=== PATIENT | female | born 1985 | race Caucasian/White ===

== ENCOUNTER 2016-11-05 07:15 | Emergency (ER) | payer BC ==
[2016-11-05 07:34] VITALS: BP 113/68
--- NOTE | 2016-11-05 08:44 | RAD ---
INDICATION: Dorsal foot and medial ankle pain after injury the previous day COMPARISON: None. TECHNIQUE: 3 views of the left ankle and 3 views of the left foot were obtained. FINDINGS: The well corticated bones exhibit normal alignment. Joint spaces appear maintained. No fracture is seen. IMPRESSION: NO RADIOGRAPHICALLY APPARENT FRACTURE OR DISLOCATION INVOLVING THE LEFT FOOT OR ANKLE. If the patient's symptoms persist, follow-up imaging is recommended.
--- NOTE | 2016-11-05 10:27 | UC ---
I, Oh,Sofranchesca, scribed for Almas Blackwood MD on 11/05/16 at 0816 . Lower Extremity/Ankle HPI - HPI Summary HPI Summary: This 31 y/o female presents to ED for left ankle pain after rolling her ankle inward while jogging on stairs yesterday morning. Negative knee pain. Positive swelling. Pt states that she is able to ambulate although "with limp". IBP, ice , and rest make pain better. Ambulation makes it worse. Pt denies any PMHx or prior injury to LLE ankle. IBP does alleviate the pain. - History of Current Complaint Chief Complaint: UCLowerExtremity Stated Complaint: ANKLE INJURY Time Seen by Provider: 11/05/16 07:42 Hx Obtained From: Patient, Medical Records Hx Last Menstrual Period: current Onset/Duration: Sudden Onset, Still Present Pain Intensity: 4 Pain Scale Used: 0-10 Numeric Aggravating Factor(s): Standing, Ambulation Alleviating Factor(s): Rest, Ice Able to Bear Weight: Yes - Allergies/Home Medications Allergies/Adverse Reactions: Allergies Allergy/AdvReac Type Severity Reaction Status Date / Time Sulfa Antibiotics Allergy Rash Verified 11/05/16 07:29 Home Medications: Home Medications Fluoxetine HCl 40 mg PO DAILY 11/05/16 [History Confirmed 11/05/16] Ibuprofen [Ibuprofen 200 MG] 200 mg PO Q6H PRN 11/05/16 [History Confirmed 11/05] PMH/Surg Hx/FS Hx/Imm Hx - Additional Past Medical History Additional PMH: Deviated septum s/p surgery - Surgical History Surgical History: Yes Surgery Procedure, Year, and Place: deviated septum - Family History Known Family History: Positive: Hypertension - Positive to father - Social History Alcohol Use: Occasionally Substance Use Type: None Smoking Status (MU): Never Smoked Tobacco Review of Systems Constitutional: Negative Skin: Negative Eyes: Negative ENT: Negative Respiratory: Negative Cardiovascular: Negative Gastrointestinal: Negative Genitourinary: Negative Motor: Negative Neurovascular: Negative Musculoskeletal: Other: - left ankle pain Neurological: Negative Psychological: Negative All Other Systems Reviewed And Are Negative: Yes Physical Exam Triage Information Reviewed: Yes Vital Signs: Initial Vital Signs Temp 99.4 F 11/05/16 07:30 Pulse 72 11/05/16 07:30 Resp 16 11/05/16 07:30 BP 113/68 11/05/16 07:30 Pulse Ox 99 11/05/16 07:30 Vital Signs Reviewed: Yes - Additional Comments The patient is well-nourished in no acute distress and in no acute pain. The skin is warm and dry and skin color reflects adequate perfusion. Neck is supple with full range of motion and non-tender. There are no carotid bruits. There is no neck vein distension. Respiratory: Chest is non-tender. Lungs are clear to auscultation and breath sounds are symmetrical and equal. Cardiovascular: Hear is regular rate and rhythm. There is no murmur or rub auscultated. There is no peripheral edema and pulses are symmetrical and equal. Abdomen: The abdomen is soft and non-tender. There are normal bowel sounds heard in all four quadrants and there is no organomegaly palpated. Musculoskeletal: There is no back pain noted. Extremities are non-tender with full range of motion. There is good capillary refill. There is no peripheral edema or calf tenderness elicited. Neurological: Patient is alert and oriented to person, place and time. The patient has symmetrical motor strength in all four extremities. Cranial nerves are grossly intact. Deep tendon reflexes are symmetrical and equal in all four extremities. Psychiatric: The patient has an appropriate affect and does not exhibit any anxiety or depression. no pain knee, or distal tibia/fibula Pain medial/lateral malleouslus. Pain mrore to foot. No pain at base of metatarsal. deltoid ligament on medial malleolus noted with swelling and acute ecchymosis. Achilles tendon intact. Procedures - Splinting Pre-Made Type: aircast Splint: Left ankle Pre-Proc Neuro Vasc Exam: normal Post-Proc Neuro Vasc Exam: normal Diagnostics - Radiology Left knee Xray Interpretation: No Acute Changes - NO RADIOGRAPHICALLY APPARENT FRACTURE OR DISLOCATION INVOLVING THE LEFT FOOT OR ANKLE. If the patient's symptoms persist, follow-up imaging is recommended. Radiology Interpretation Completed By: Radiologist Left foot Xray Interpretation: No Acute Changes - NO RADIOGRAPHICALLY APPARENT FRACTURE OR DISLOCATION INVOLVING THE LEFT FOOT OR ANKLE. If the patient's symptoms persist, follow-up imaging is recommended. Radiology Interpretation Completed By: Radiologist Re-Evaluation - Re-Evaluation First Eval Re-Evaluation Time: 08:52 Lower Extremity Course/Dx - Course Course Of Treatment: Home med list reviewed and confirmed. Vital signs reviewed and noted with normotensive BP. This 31 y/o female presents to ED for LLE ankle injury and pain since 2 days ago. X-ray imaging results indicate negative fx or dislocation of LLE ankle. Pt will be discharged with outpatient f/u plan. - Differential Dx/Diagnosis Differential Diagnosis/HQI/PQRI: Fracture (Closed), Sprain, Tendonitis Provider Diagnoses: 1) left ankle sprain. Discharge - Discharge Plan Condition: Stable Disposition: HOME Patient Education Materials: Ankle Sprain (ED) Referrals: Shashank Morelos [Medical Doctor] - 2 Days Additional Instructions: Be sure to apply ice and keep ankle elevated. The documentation as recorded by the Christ yañez Soohyun accurately reflects the service I personally performed and the decisions made by me, Almas Blackwood MD.
== END 2016-11-05 09:19 | disposition home or self-care (01) ==
LOC: UCEAST 07:15
DX: S93.402A Sprain of unspecified ligament of left ankle, initial encounter (principal); X50.0XXA Overexertion from strenuous movement or load, initial encounter; Y93.02 Activity, running; Y92.9 Unspecified place or not applicable; Y99.9 Unspecified external cause status
CPT/HCPCS: 99213; G0463

== ENCOUNTER 2017-09-22 13:20 | Emergency (ER) | payer BC ==
[2017-09-22] MEDS ORDERED: NS 0.9% 1000 ML* 3,000 ML IV ONE (13:59)
[2017-09-22] MEDS ORDERED: Ondansetron ODT TAB* 4 MG PO ONE (14:00)
[2017-09-22 14:22] LABS: ABS Basophils 0 10^3/ul (0-0.2); ABS Eosinophils 0 10^3/ul (0-0.6); ABS Lymphocytes 0.6 10^3/ul (1.0-4.8); ABS Monocytes 0.4 10^3/ul (0-0.8); ABS Neutrophils 4.6 10^3/ul (1.5-7.7); ABS Nucleated RBC 0 10^3/ul; Eosinophil % 0.6 % (0-6); Hematocrit 42 % (35-47); Hemoglobin 14.5 g/dl (12.0-16.0); Lymphocyte % 11.3 % (25-47); Mean Corpuscular HGB Conc 35 g/dl (31-36); Mean Corpuscular Hemoglobin 31 pg (27-31); Mean Corpuscular Volume 89 fL (80-97); Mean Platelet Volume 7.3 um3 (7.4-10.4); Nucleated Red Blood Cells % 0; Platelet Count 191 10^3/ul (150-450); Red Blood Count 4.69 10^6/ul (4.0-5.4); Red Cell Distribution Width 12 % (10.5-15); White Blood Count 5.7 10^3/ul (3.5-10.8)
[2017-09-22 14:32] LABS: INR 1.01 (0.77-1.02)
[2017-09-22 14:41] LABS: EGFR Non-African American 83.7 (>60)
[2017-09-22] MEDS ORDERED: Ketorolac INJ* 30 MG/ML 1 ML VIAL IV ONE (16:00)
[2017-09-22] MEDS ORDERED: Ciprofloxacin TAB* 500 MG PO ONE ×2 (18:02→18:05)
[2017-09-22] MEDS ORDERED: metroNIDAZOLE TAB* 250 MG PO ONE ×2 (18:02→18:04)
[2017-09-22] MEDS ORDERED: O ndansetron ODT 4MG 2TAB PRPK 4 MG PAK PO ONE (18:03)
--- NOTE | 2017-09-22 18:09 | ED ---
Pal Pena Tiffany, scribed for Jim Keller MD on 09/22/17 at 1401 . Abdominal Pain/Female - HPI Summary HPI Summary: The patient is a 32 y/o F presenting to [facility] complains of abdominal pain since five nights ago. The patient rates the pain6 6/10 in severity. Symptoms aggravated by food. Symptoms alleviated by nothing. Reports diarrhea, nausea, decreased appetite, weakness, low back pain, chills, diaphoresis. Denies vomiting, blood in stools, fever, dysuria. Hx of IBS. No abdominal surgeries. - History of Current Complaint Chief Complaint: EDNauseaVomitDiarrh Stated Complaint: DIARRHEA Hx Obtained From: Patient Hx Last Menstrual Period: current Onset/Duration: Lasting Days - 5 nights ago, Still Present Timing: Constant Severity Currently: Moderate Pain Intensity: 6 Pain Scale Used: 0-10 Numeric Aggravating Factor(s): Food Alleviating Factor(s): Nothing Associated Signs and Symptoms: Positive: Negative - vomiting, blood in stools, fever, dysuria, Other: - diarrhea, nausea, decreased appetite, weakness, low back pain, chills, diaphoresis Allergies/Adverse Reactions: Allergies Allergy/AdvReac Type Severity Reaction Status Date / Time Sulfa (Sulfonamide Allergy Rash Verified 09/22/17 13:39 Antibiotics) Home Medications: Home Medications FLUoxetine CAP* [PROzac CAP*] 20 mg PO DAILY 09/22/17 [History Confirmed ] Levonorgestrel-Ethin Estradiol [Lessina-28] 1 tab PO DAILY 09/22/17 [History Confirmed 09/22/17] PMH/Surg Hx/FS Hx/Imm Hx Previously Healthy: No Endocrine/Hematology History: Denies: Hx Diabetes Cardiovascular History: Denies: Hx Hypertension, Hx Pacemaker/ICD GI History: Reports: Hx Irritable Bowel History: Denies: Hx Renal Disease Sensory History: Denies: Hx Hearing Aid Psychiatric History: Denies: Hx Panic Disorder - Surgical History Surgery Procedure, Year, and Place: deviated septum Infectious Disease History: No Infectious Disease History: Denies: Traveled Outside the [place] in Last 30 Days - Family History Known Family History: Positive: Hypertension - Positive to father - Social History Alcohol Use: Occasionally Hx Substance Use: No Substance Use Type: Reports: None Hx Tobacco Use: No Smoking Status (MU): Never Smoked Tobacco Review of Systems Positive: Chills, Skin Diaphoresis. Negative: Fever Gastrointestinal: Negative - Blood in stools Positive: Abdominal Pain, Diarrhea, Nausea, Other - Decreased appetite. Negative: Vomiting Negative: dysuria Positive: Other - Low back pain Positive: Weakness All Other Systems Reviewed And Are Negative: Yes Physical Exam - Summary Physical Exam Summary: General: Mildly ill-appearing, no pain distress Skin: warm, color reflects adequate perfusion, dry Head: normal Eyes: EOMI, DANIE ENT: Oral mucosa dry Neck: supple, nontender Respiratory: CTA, breath sounds present Cardiovascular: RRR Abdomen: mild diffuse tenderness Bowel: hypoactive bowel sounds Musculoskeletal: normal, strength/ROM intact Neurological: normal, sensory/motor intact, A&O x3 Psychological: affect/mood appropriate Triage Information Reviewed: Yes Vital Signs On Initial Exam: Initial Vitals Temp Pulse Resp BP Pulse Ox 99.2 F 84 19 131/81 100 09/22/17 13:24 09/22/17 13:24 09/22/17 13:24 09/22/17 13:24 09/22/17 13:24 Vital Signs Reviewed: Yes Diagnostics - Vital Signs Vital Signs Temp Pulse Resp BP Pulse Ox 09/22/17 13:38 73 117/66 100 09/22/17 13:36 74 100 09/22/17 13:24 99.2 F 84 19 131/81 100 - Laboratory Lab Results: Lab Results 09/22/17 09/22/17 09/22/17 Range/Units 14:14 14:14 14:14 WBC 5.7 (3.5-10.8) 10^3/ul RBC 4.69 (4.0-5.4) 10^6/ul Hgb 14.5 (12.0-16.0) g/dl Hct 42 (35-47) % MCV 89 (80-97) fL MCH 31 (27-31) pg MCHC 35 (31-36) g/dl RDW 12 (10.5-15) % Plt Count 191 (150-450) 10^3/ul MPV 7.3 L (7.4-10.4) um3 Neut % (Auto) 80.9 (38-83) % Lymph % (Auto) 11.3 L (25-47) % [place] % (Auto) 6.9 (0-7) % Eos % (Auto) 0.6 (0-6) % Baso % (Auto) 0.3 (0-2) % Absolute Neuts (auto) 4.6 (1.5-7.7) 10^3/ul Absolute Lymphs (auto) 0.6 L (1.0-4.8) 10^3/ul Absolute Monos (auto) 0.4 (0-0.8) 10^3/ul Absolute Eos (auto) 0 (0-0.6) 10^3/ul Absolute Basos (auto) 0 (0-0.2) 10^3/ul Absolute Nucleated RBC 0 10^3/ul Nucleated RBC % 0 INR (Anticoag Therapy) 1.01 (0.77-1.02) APTT 30.4 (26.0-36.3) seconds Sodium 133 L (139-145) mmol/L Potassium 3.3 L (3.5-5.0) mmol/L Chloride 103 (101-111) mmol/L Carbon Dioxide 25 (22-32) mmol/L Anion Gap 5 (2-11) mmol/L BUN 8 (6-24) mg/dL Creatinine 0.80 (0.51-0.95) mg/dL Est GFR ( Amer) 107.6 (>60) Est GFR (Non-Af Amer) 83.7 (>60) BUN/Creatinine Ratio 10.0 (8-20) Glucose 103 H (70-100) mg/dL Lactic Acid (0.5-2.0) mmol/L Calcium 8.6 (8.6-10.3) mg/dL Total Bilirubin 0.50 (0.2-1.0) mg/dL AST 17 (13-39) U/L ALT 11 (7-52) U/L Alkaline Phosphatase 42 (34-104) U/L C-Reactive Protein 17.08 H (< 5.00) mg/L Total Protein 6.8 (6.4-8.9) g/dL Albumin 3.9 (3.2-5.2) g/dL Globulin 2.9 (2-4) g/dL Albumin/Globulin Ratio 1.3 (1-3) Lipase 25 (11.0-82.0) U/L Beta HCG, Quant < 0.60 mIU/mL 09/22/17 Range/Units 14:14 WBC (3.5-10.8) 10^3/ul RBC (4.0-5.4) 10^6/ul Hgb (12.0-16.0) g/dl Hct (35-47) % MCV (80-97) fL MCH (27-31) pg MCHC (31-36) g/dl RDW (10.5-15) % Plt Count (150-450) 10^3/ul MPV (7.4-10.4) um3 Neut % (Auto) (38-83) % Lymph % (Auto) (25-47) % [place] % (Auto) (0-7) % Eos % (Auto) (0-6) % Baso % (Auto) (0-2) % Absolute Neuts (auto) (1.5-7.7) 10^3/ul Absolute Lymphs (auto) (1.0-4.8) 10^3/ul Absolute Monos (auto) (0-0.8) 10^3/ul Absolute Eos (auto) (0-0.6) 10^3/ul Absolute Basos (auto) (0-0.2) 10^3/ul Absolute Nucleated RBC 10^3/ul Nucleated RBC % INR (Anticoag Therapy) (0.77-1.02) APTT (26.0-36.3) seconds Sodium (139-145) mmol/L Potassium (3.5-5.0) mmol/L Chloride (101-111) mmol/L Carbon Dioxide (22-32) mmol/L Anion Gap (2-11) mmol/L BUN (6-24) mg/dL Creatinine (0.51-0.95) mg/dL Est GFR ( Amer) (>60) Est GFR (Non-Af Amer) (>60) BUN/Creatinine Ratio (8-20) Glucose (70-100) mg/dL Lactic Acid 0.9 (0.5-2.0) mmol/L Calcium (8.6-10.3) mg/dL Total Bilirubin (0.2-1.0) mg/dL AST (13-39) U/L ALT (7-52) U/L Alkaline Phosphatase (34-104) U/L C-Reactive Protein (< 5.00) mg/L Total Protein (6.4-8.9) g/dL Albumin (3.2-5.2) g/dL Globulin (2-4) g/dL Albumin/Globulin Ratio (1-3) Lipase (11.0-82.0) U/L Beta HCG, Quant mIU/mL Result Diagrams: 09/22/17 14:14 09/22/17 14:14 Lab Statement: Any lab studies that have been ordered have been reviewed, and results considered in the medical decision making process. Re-Evaluation - Re-Evaluation First Eval Re-Evaluation Time: 17:33 Change: Improved Comment: Patient feels better. Is agreeable to discharge. Abdominal Pain Fem Course/Dx - Course Course Of Treatment: Medications reviewed. Allergies noted. DISCUSSED RESULTS WITH THE PATIENT AND FRIEND. DISCUSSED ADMISSION VERSES HOME TREATMENT. ALSO, DISCUSSED ABX TREATMENT. PATIENT WISHES TO GO HOME. RX CIPRO/FLAGYL, F/U PMD; RETURN IF WORSE. - Diagnoses Provider Diagnoses: Bloody diarrhea, Abdominal pain Discharge - Sign-Out/Discharge Documenting (check all that apply): Discharge/Admit/Transfer - Discharge Plan Condition: Stable Disposition: HOME Patient Education Materials: Acute Diarrhea (ED), Acute Abdominal Pain (ED) Referrals: Laurie Zamora NP [Primary Care Provider] - Additional Instructions: FOLLOW UP WITH YOUR DOCTOR. RETURN TO THE EMERGENCY DEPARTMENT FOR ANY WORSENING OF YOUR CONDITION; FEVER, YOU FEEL ILL, PAIN, YOU FEEL LIKE PASSING OUT OR QUESTIONS OR CONCERNS. - Billing Disposition and Condition Condition: STABLE Disposition: HOME The documentation as recorded by the Pal yañez Tiffany accurately reflects the service I personally performed and the decisions made by me, Jim Keller MD.
[2017-09-22 18:30] VITALS: BP 123/83
--- NOTE | 2017-09-23 10:48 | PN ---
Progress Note - Progress Note Date of Service: 09/22/17 Note: positive stool occult blood, positive fecal lactoferrin patient diagnosed and discharged with bloody diarrhea no antbiotic treatment will wait for remaining stool culture results. no further action required
--- NOTE | 2017-09-24 17:33 | ED ---
Progress - Progress Note Progress Note: Stool culture negative for cryptosporidium, Giardia, shiga toxins. No further tx at this time. Re-Evaluation - Re-Evaluation First Eval Re-Evaluation Time: 17:33 Change: Improved Comment: Patient feels better. Is agreeable to discharge. Course/Dx - Course Course Of Treatment: Medications reviewed. Allergies noted. DISCUSSED RESULTS WITH THE PATIENT AND FRIEND. DISCUSSED ADMISSION VERSES HOME TREATMENT. ALSO, DISCUSSED ABX TREATMENT. PATIENT WISHES TO GO HOME. RX CIPRO/FLAGYL, F/U PMD; RETURN IF WORSE. - Diagnoses Provider Diagnoses: Bloody diarrhea, Abdominal pain Discharge - Sign-Out/Discharge Documenting (check all that apply): Post-Discharge Follow Up - Discharge Plan Condition: Stable Disposition: HOME Patient Education Materials: Acute Diarrhea (ED), Acute Abdominal Pain (ED) Referrals: Laurie Zamora NP [Primary Care Provider] - Additional Instructions: FOLLOW UP WITH YOUR DOCTOR. RETURN TO THE EMERGENCY DEPARTMENT FOR ANY WORSENING OF YOUR CONDITION; FEVER, YOU FEEL ILL, PAIN, YOU FEEL LIKE PASSING OUT OR QUESTIONS OR CONCERNS. - Billing Disposition and Condition Condition: STABLE Disposition: HOME
== END 2017-09-22 18:29 | disposition home or self-care (01) ==
LOC: ED 13:20
DX: K92.1 Melena (principal); R19.7 Diarrhea, unspecified; R10.9 Unspecified abdominal pain; R11.0 Nausea; R53.1 Weakness; M54.5 Low back pain; R68.83 Chills (without fever)
CPT/HCPCS: 36415; 80053; 82270; 83605; 83630; 83690; 84702; 85025; 85610; 85730; 86140; 87045; 87046; 87077; 87328; 87329; 87899; 96374; 99284; A9270-GY; J1885

== ENCOUNTER 2019-08-25 18:13 | Inpatient (IN) | payer BC ==
[2019-08-25] MEDS ORDERED: Dinoprostone* 10 MG VAG.SUPP VAGINAL ONE (19:27)
[2019-08-25] MEDS ORDERED: Lactated Ringers 1000 ML Bag* 1,000 ML IV ONE (19:27)
[2019-08-25] MEDS ORDERED: Buffered Lidocaine 1% SYRIN* 1 ML/SYRINGE INTRADERM ONE (19:27)
--- NOTE | 2019-08-25 19:37 | HP ---
General Information - Reason for Visit 34yo, IUP@39+5 here for an IOL for GHTN vs. mild PEC - General Information Maternal Age: 34 Grav: 1 Para: 0 SAB: 0 IEA: 0 Estimated Due Date: 08/27/19 Determined By: Early Ultrasound Gestational Age in Weeks/Days: 39+5 Maternal Blood Type and Rh: O Positive - Results this Serology/RPR Result: Non-Reactive Rubella Result: Immune HBsAg Result: Negative HIV Result: Negative GBS Culture Result: Negative Past Medical History Pertinent Past Medical History: See Records Past Medical History Comment: Depression/anxiety Breast lump - biopsy negative Pertinent Past Surgical History: See Records Past Surgical History Comment: Septoplasty Pertinent Family History: See Records Family History Comment: Father: heart disease Mother: acoustic neuroma PGM: polio PGF: to [place] MGM: dementia MGF: heart disease - Antepartal Records Antepartal Records: Reviewed, Complicated by: - Hx of abnormal Pap; GHTN Review of Systems Constitutional: Comfortable CV Complaint: No Respiratory: Shortness of Breath: No Gastrointestinal: No Nausea/Vomiting Genitourinary: No Dysuria, No Bleeding, No Leaking Fluid Musculoskeletal: No Complaint, No Epigastric Pain Neurological: No Visual Changes, Headache Movement: Normal Exam Allergies/Adverse Reactions: Allergies Sulfa (Sulfonamide Antibiotics) Allergy (Verified 09/22/17 13:39) Rash temp 98.9, HR 94, RR 16, 148/75, O2 99 - Measurements Height: 5 ft 7.5 in Weight: 203 lb Weight in lbs: 203.916925 Body Mass Index (BMI): 31.3 Pre- Weight: 145 lb Weight Gained This : 58 lbs and 0 ozs - Exam Breast: Breast Exam Deferred CVA: No CVA Tenderness Extremities: No Edema Heart: Normal Rhythm/Heart Sounds HEENT: No Significant Findings Lungs: Clear Bilaterally Rectal: Rectal Exam Deferred Thyroid: No Thyromegaly - Abdominal Exam Abdomen Exam: Non-Tender - Ultrasound/Biophysical Profile Ultrasound Status: Not Done Targeted Exam Findings Estimated Weight: 9lbs Cervical Exam: Fingertip - Exam by Murray Hein CNM in office today Effacement: 80% Station: -2 Presenting Part: Vertex Membrane Status: Intact Bleeding/Discharge: None EFM Findings - External Monitor Findings Baseline Heart Rate: 160 External Monitor Findings: Accelerations Present, No Pattern of Variable or Late Decelerations, Variability Moderate External Monitor Findings Comment: No evidence of metabolic acidemia Contractions: Irregular, 45-90 Seconds Assessment/Plan - Assessment 34yo, IUP@39+5 here for an IOL for GHTN vs. mild preeclampsia GBS negative, O+, RI GHTN dx in office today, reports ZHANG all day Denies new onset edema, vision changes, RUQ pain No evidence of metabolic acidemia Occasional contraction - mild, good resting tone - Obstetrical Risk Factors Obstetrical Risk Factors: Gestational Hypertension - Plan Plan: Admit - Anticipate Vaginal Delivery Plan Comment: Admit to L&D PEC labs now PARQ discussion about cervidil for ripening. Pt and in agreement with plan. Desires epidural, prn Consider sleep aid, therapeutic rest prn - Date/Time of Admission Date of Admission: 08/25/19 Time of Admission: 19:30
[2019-08-25 20:07] LABS: ABS Eosinophils 0.1 10^3/ul (0-0.6); ABS Lymphocytes 1.7 10^3/ul (1.0-4.8); ABS Monocytes 0.7 10^3/ul (0-0.8); ABS Neutrophils 6.9 10^3/ul (1.5-7.7); Eosinophil % 0.6 %; Hematocrit 32 % (35-47); Lymphocyte % 18.5 %; Mean Corpuscular HGB Conc 34 g/dL (31-36); Mean Corpuscular Hemoglobin 29 pg (27-31); Mean Corpuscular Volume 84 fL (80-97); Platelet Count 222 10^3/uL (150-450); Red Blood Count 3.79 10^6 /uL (3.70-4.87); Red Cell Distribution Width 14 % (10-15); White Blood Count 9.3 10^3/uL (3.5-10.8)
[2019-08-25 20:16] LABS: Albumin 3.2 g/dL (3.2-5.2); Calcium 9.1 mg/dL (8.6-10.3); Potassium 3.8 mmol/L (3.5-5.0); Total Bilirubin 0.4 mg/dL (0.2-1.0)
[2019-08-25 20:22] LABS: Albumin/Globulin Ratio 1.1 (1-3); BUN/Creatinine Ratio 16.4 (8-20); EGFR Non-African American 127.3 (>60); Globulin 2.9 g/dL (2-4); Total Protein 6.1 g/dL (6.4-8.9); Uric Acid 3.8 mg/dL (2.3-6.6)
[2019-08-25 20:36] LABS: Ur Mic-albumin/Creat Obstetric 16.2; Ur Microalbumin Obstetric mg/L < 15.0 mg/L; Urine Benzodiazepine Screen None Detected (None Detect); Urine Creatinine Obstetric 92.16 mg/dL; Urine Opiates Screen None Detected (None Detect)
--- NOTE | 2019-08-25 21:27 | PN ---
Progress Note - Progress Note Date of Service: 08/25/19 Note: PEC labs WNL Cervidil placed without complication Remove cervidil in 12 hours Monitoring per protocol
--- NOTE | 2019-08-26 09:45 | PN ---
Progress Note - Progress Note Date of Service: 08/26/19 Note: S: Feeling ok, got some sleep. Now feeling ctx which are very tolerable, "like menstrual cramps". Cervidil removed by patient. O: VE 1cm/80/vtx -1 FHT 130, +accels, no decels, mod james VSS, afebrile UCs q 2-3 min A: IUP @ 40+6 weeks gestation for induction for GHTN No evidence acidemia Membranes intact P: PARQ discussion Cook's catheter for continued ripening. May consider misoprostal oral dose vs initiating pitocin though will monitor contractions for now and start with balloon insertion.
[2019-08-26] MEDS ORDERED: Lidocaine 2% JELLY* 6 ML JELLY TOPICAL ONE (09:46)
--- NOTE | 2019-08-26 14:28 | PN ---
Progress Note - Progress Note Date of Service: 08/26/19 Note: S: Patient moderately uncomfortable with contractions, states she finds it hard to be up and walking. O:VE deferred Cook's balloons filled to 80ml each UCs approx q 4-5 min FHT 125, +accels, no decels, mod james VSS, afebrile A: IUP @ 40+6 weeks gestation for induction for GHTN No evidence acidemia Membranes intact P: Patient will want epidural when more uncomfortable. Will continue ripening with catheter, consider pitocin augmentation. Encourage position changes, try yoga ball.
[2019-08-26] MEDS ORDERED: Oxytocin in LR* 20 UNITS/1,000 ML BAG IVPB ONE (17:26)
--- NOTE | 2019-08-26 17:43 | PN ---
Progress Note - Progress Note Date of Service: 08/26/19 Note: S: Reports feeling that ctx are less strong and have spaced out. Had napped a little. O: VE deferred Cook's balloon in place FHT 125 via doppler VSS A: IUP @ 40+6 weeks gestation for labor induction No evidence acidemia Membranes intact P: PARQ discussion initiating pitocin for labor augmentation/induction; patient in agreement. Will start low dose and titrate up. Balloon to be removed @ 2130 unless out before. Patient to request epidural whenever uncomfortable.
[2019-08-26] MEDS ORDERED: Oxytocin in LR* 20 UNITS/1,000 ML BAG IVPB SCH (18:00)
[2019-08-26] MEDS: Lactated Ringers 1000 ML Bag* 1,000 ML IV SCH ×2 (19:02→21:25)
--- NOTE | 2019-08-26 21:47 | PN ---
Progress Note - Progress Note Date of Service: 08/26/19 Note: S: Got a little sleep, woke during ctx but reports they are no stronger than previously, rates them moderate. O: VE 2cm/80/-1 Cooks removed Pit @ 12 FHT 130, +accels, mod james, no decels VSS, afebrile A: IUP for induction for GHTN Doubt acidemia P: Continue pitocin titration; epidural when desired.
[2019-08-26] MEDS: Sertraline* 50 MG TAB PO SCH (22:53)
[2019-08-27] MEDS: Lactated Ringers 1000 ML Bag* 1,000 ML IV SCH ×2 (05:46→19:22)
--- NOTE | 2019-08-27 07:03 | PN ---
Progress Note - Progress Note Date of Service: 08/27/19 Note: S: Patient slept ok, reports that ctx were stronger last night but they eased up. She reports large mucus discharge. O: VE deferred FHT 130, +accels, no decels, mod james UCs q 2-4 min Pit @ 21 VSS A: IUP @ 40+0 weeks gestation for induction for GHTN No evidence acidemia Membranes intact P: Discussion of pitocin break, patient to have breakfast. PARQ discussion trying continued low-dose pitocin vs amniotomy vs both or could consider misoprostal oral dose. Prefers to defer cervical exam to oncoming sanitation lead and will continue to dicuss. Report to Em Em CNM
[2019-08-27] MEDS ORDERED: Misoprostol TAB* 100 MCG PO ONE ×2 (10:04→14:18)
[2019-08-27] MEDS ORDERED: Misoprostol TAB* 100 MCG ONE (10:09)
--- NOTE | 2019-08-27 10:15 | PN ---
Progress Note - Progress Note Date of Service: 08/27/19 Note: S: Slept for awhile, has had breakfast. Reports UCs stopped with discontinuation of pitocin. Feeling somewhat discouraged. Partner at bedside, involved. O: B/P: 116/76, P: 100 R: 16, T: 99.1 FHR: baseline 135, moderate variability, +accelerations, no decelerations UCs: irregular, very mild VE deferred A: IUP at 40 0/7 weeks Category I FHR, no evidence of metabolic acidemia Not in labor GBS negative Gestational hypertension, normal labs. B/Ps today all WNL P: PARQ discussion re: ripening with 50 mcg oral misoprostol; Norma and partner agree to trial EFM per protocol Reassess PRN Anticipate SVB
--- NOTE | 2019-08-27 14:22 | PN ---
Progress Note - Progress Note Date of Service: 08/27/19 Note: S: Reports mild, menstrual-like cramps. O: B/P: 139/79, P: 87, R: 16, T: 98.7\ FHR: baseline 125, moderate variability, +accelerations no decelerations UCs: irregular, mild VE: 2.5/80/-2. Posterior A: IUP at 40 0/7 weeks Category I FHR, no evidence of metabolic acidemia Allen score: 6 P: Plan to repeat dose of oral misoprostol - 50 mcg Reassess PRN Anticipate SVB
--- NOTE | 2019-08-27 18:47 | PN ---
Progress Note - Progress Note Date of Service: 08/27/19 Note: S: Slightly more cramping this dose of misoprostol. O: B/P: 132/76, P: 93, R: 16, T: 99.5 FHR: baseline 130, moderate variability, +accelerations, no decelerations UCs: irregular, mild VE: 3/80/-2, posterior A: IUP at 40 0/7 weeks Category I FHR, no evidence of metabolic acidemia Allen score: 8 P: PARQ discussion re: low dose IV pitocin. Norma and partner agree EFM per protocol Reassess PRN Anticipate SVB
[2019-08-27] MEDS ORDERED: Oxytocin in LR* 20 UNITS/1,000 ML BAG IVPB SCH (19:00)
[2019-08-27] MEDS: Sertraline* 50 MG TAB PO SCH (21:19)
[2019-08-28] MEDS ORDERED: OBEPIDURAL* 250 ML EPIDURAL ONE ×2 (02:34→18:28)
--- NOTE | 2019-08-28 02:46 | PN ---
Progress Note - Progress Note Date of Service: 08/28/19 Note: Quick note: SROM to clear fluid at 0110. Exam 3 cm per RN. Requests epidural; Dr. Mauricio paged and now in house. Will reassess once comfortable
[2019-08-28] MEDS: Lactated Ringers 1000 ML Bag* 1,000 ML IV SCH ×2 (03:28→06:02)
[2019-08-28] MEDS ORDERED: Sodium Citrate/Citric Acid* 15 ML UDC PO PRN (03:37)
[2019-08-28] MEDS ORDERED: Phenylephrine 40 MCG/ML SYRINGE IV PUSH PRN ×2 (03:37)
[2019-08-28] MEDS ORDERED: Lactated Ringers 1000 ML Bag* 1,000 ML IV ONE (03:37)
[2019-08-28] MEDS ORDERED: OBEPIDURAL* 250 ML EPIDURAL SCH (04:00)
[2019-08-28] MEDS ORDERED: Lactated Ringers 1000 ML Bag* 1,000 ML IV SCH ×2 (04:00→21:00)
--- NOTE | 2019-08-28 08:42 | PN ---
Progress Note - Progress Note Date of Service: 08/28/19 Note: S: Notes some low abdominal discomfort with contractions. Otherwise comfortable with CEI infusing. O: B/P: 113/54, P: 76, R: 20, T: 99.5 FHR: baseline 130, moderate variability, +accelerations, no decelerations UCs: 2-4 mins, good resting tone VE: 4/100/-1 Pitocin: 16mU IUPC placed without complication A: IUP at 40 0/7 weeks, IOL of GHTN Early labor Category I FHR, no evidence of metabolic acidemia Regular contractions P: Continue to titrate Pitocin as tolerated until adequate contraction pattern achieved Monitor MVUs EFM per protocol Reassess PRN Anticipate SVB
--- NOTE | 2019-08-28 09:56 | PN ---
Progress Note - Progress Note Date of Service: 08/28/19 Note: Called by RN, pt more uncomfortable with contractions VE: unchanged Pitocin at 18mU, MVUs 140 Will notify anesthesia
[2019-08-28] MEDS ORDERED: Lidocaine 2% w/ EPI 1:200,000* 20 ML SDV VIAL ONE (10:09)
--- NOTE | 2019-08-28 12:16 | PN ---
Progress Note - Progress Note Date of Service: 08/28/19 Note: Notified by RN that pt is at limit for low-dose Pitocin protocol MVUs per IUPC still < 200 Plan to increase Pitocin by 6 q30 minutes as tolerated KEG aware of pt presence and in agreement with plan
[2019-08-28] MEDS ORDERED: Oxytocin in LR* 20 UNITS/1,000 ML BAG IVPB SCH ×2 (13:00→21:00)
--- NOTE | 2019-08-28 13:38 | PN ---
Progress Note - Progress Note Date of Service: 08/28/19 Note: S: Notes some low abdominal discomfort with contractions. Otherwise comfortable with CEI infusing. O: B/P: 135/74, P: 87, R: 20, T: 99.6 FHR: baseline 135, moderate variability, +accelerations, no decelerations UCs: 2-[address], MVUs: 170 VE: 9/100/-1 Pitocin: 34mU A: IUP at 40 0/7 weeks, IOL of GHTN Active labor Category I FHR, no evidence of metabolic acidemia Regular contractions P: Monitor MVUs EFM per protocol Anticipate SVB
[2019-08-28] MEDS ORDERED: Tranexamic Acid 1,000 MG/10 ML SDV ONE (18:53)
[2019-08-28] MEDS ORDERED: Carboprost Tromethamine* 250 MCG INJ ONE (19:34)
[2019-08-28] MEDS ORDERED: ceFAZolin 2 GM PREMIX in ORs 2 GM/50 ML BAG ONE (19:39)
[2019-08-28] MEDS ORDERED: Ondansetron INJ* 2 MG/ML VIAL ONE (19:57)
[2019-08-28] MEDS ORDERED: Lidocaine 1% INJ* 10 MG/ML 30 ML SDV ONE (20:34)
[2019-08-28 20:36] LABS: Hematocrit 30 % (35-47); Hemoglobin 10.1 g/dL (12.0-16.0); Mean Corpuscular HGB Conc 34 g/dL (31-36); Mean Corpuscular Hemoglobin 28 pg (27-31); Mean Corpuscular Volume 84 fL (80-97); Mean Platelet Volume 8.2 fL (7.4-10.4); Platelet Count 219 10^3/uL (150-450); Red Blood Count 3.57 10^6 /uL (3.70-4.87); Red Cell Distribution Width 14 % (10-15); White Blood Count 20.2 10^3/uL (3.5-10.8)
[2019-08-28] MEDS ORDERED: Misoprostol TAB* 200 MCG PR ONE (20:54)
[2019-08-28] MEDS ORDERED: Acetaminophen TAB* 325 MG PO PRN (20:54)
[2019-08-28] MEDS ORDERED: Carboprost Tromethamine* 250 MCG INJ IM ONE (20:54)
[2019-08-28] MEDS ORDERED: Glycerin ADULT SUPP PR PRN (20:54)
[2019-08-28] MEDS ORDERED: Methylergonovine INJ* 0.2 MG/ML 1ML AMP IM ONE (20:54)
[2019-08-28] MEDS ORDERED: Witch Hazel PAD* JAR TOPICAL PRN (20:54)
[2019-08-28] MEDS ORDERED: Dibucaine 1% 28.35 GM TUBE PR PRN (20:54)
[2019-08-28] MEDS ORDERED: Simethicone TAB* 80 MG TAB.CHEW PO SCH (21:00)
[2019-08-28] MEDS ORDERED: TRANEXAMIC ACID 1 GM/100ML BAG 1,000 MG/100 ML BAG IV ONE (21:03)
[2019-08-28] MEDS ORDERED: Ondansetron INJ* 2 MG/ML VIAL IV PRN (21:06)
[2019-08-28] MEDS ORDERED: ceFAZolin VIAL(*) 2 GM in NS 0.9% 100 ML* 100 ML IVPB ONE (21:06)
--- NOTE | 2019-08-28 22:27 | OP ---
OPERATIVE REPORT: DATE OF OPERATION: 08/28/19 DATE OF : 87 SURGEON: Dr. Kim Best. ANESTHESIA: 10 cc of 1% lidocaine intraoperatively as a local and also anesthesia was labor epidural. PRE-OP DIAGNOSIS: atony, status post normal spontaneous vaginal delivery. POST-OP DIAGNOSIS: atony, status post normal spontaneous vaginal delivery. OPERATIVE PROCEDURE: Exam with local anesthesia and repair of mediolateral episiotomy. ESTIMATED BLOOD LOSS: Prior to going back to the operating room is about 1-1/2 L. Blood loss intraoperatively was about 50 cc. URINE OUTPUT: Body catheter was placed with urine output 400 cc. FLUIDS: Less than 500 cc of crystalloid. DESCRIPTION OF PROCEDURE: The patient was placed on operating room bed. Legs were placed in [place] stirrups. The perineum and vagina were prepped and draped using Betadine. A sterile drape was placed under the buttock and an exam was performed, which revealed from the time of transit from the delivery room to the OR, no active bleeding was noted, and a 10 cc of 1% lidocaine was injected at the mediolateral episiotomy and the mediolateral episiotomy was closed using 3-0 Vicryl on the vaginal mucosa and 0-Vicryl on the perineal body. Excellent reapproximation was noted and the patient had minimal bleeding. There was no evidence of any cervical lacerations or vaginal laceration other than the mediolateral episiotomy and the bleeding was secondary to significant uterine atony, which responded to IV Pitocin , 250 mcg of Hemabate IM, 800 mcg of Cytotec, 1 g of tranexamic acid, and Methergine 0.2 mg. The patient was taken back to the delivery room in stable condition. Immediate hemoglobin done intraoperatively revealed hemoglobin of 10.1 and hematocrit of 30, and a platelet count of 219,000. [id number]/[facility] #: [id number] [facility]
--- NOTE | 2019-08-28 23:09 | PROCNOTE ---
[facility] OB: Delivery Note - Delivery A Date of : 08/28/19 Time of : 19:21 [place] Sex: Female Weight at : 7 lb 15 oz Score 1 Minute: 5 Score 5 Minutes: 8 Gestational Age in Weeks and Days at Delivery: 40 Weeks and 1 Days Delivery Method: Spontaneous Vaginal Labor: Induced Did Patient attempt ?: N/A, No Previous Amniotic Fluid: Clear Estimated Blood Loss: 1,500 Anesthesia/Analgesia: CEI for Labor Delivered By: Rosemarie Sandhu - Nursery Level of Nursery: Regular/Bedside - Perineum Perineal Injury: Right Mediolateral Perineal Injury Comment: Repaired in the OR by MD KAREL under 1% lidocaine with CEI - Events Delivery Events of Note: Post- Bleeding - Meds Given, Pushed > 3 Hours, IUPC Use - Risk for Falls Delivered OB Patient- Risk for Falls: Heavy Bleeding Fall Risk: Patient is at High Risk for Falls - Additional Delivery Notes Additional Delivery Notes: Pt admitted to L&D on 08/24 for an IOl for GHTN. Following cervidil, Cook balloon , misoprostol, and high dose pitocin - pt progressed to active labor. CEI with moderate relief. Pt progressed to complete and complete on 08/27 at 1445. MD KAREL was called to the bedside for prolonged second stage. Category I tracing for most of second stage. After 4 hours and 45 minutes of pushing baby slowly began to crown. delivery of live female followed over a right mediolateral episiotomy. OA to BETTY, nuchal cord x2 reduced on the perineum. Baby was initially stunned, cord clamped/cut, and baby taken to the warmer for PPV. Apgars were 5 and 8. Brisk bleeding noted following delivery of body. Pitocin given IVPB and cord traction applied for active management of 3rd stage. Placenta delivered via rodríguez, appeared intact, 3vc. Bleeding continued following delivery of placenta. Cytotec 800mg given NV. MD KAREL assumed management of patient. A second IV was placed. Tranexamic acid given IVPB, along with methergine 0.2mg, IM; and hemabate 250mcg, IM. Despite meds, uterine atony persisted with EBL 1500mL. The decision was made to move to the OR in order to assess source of bleeding under general anesthesia. See procedure note dictated by MD KAREL.
[2019-08-29] MEDS: Ibuprofen TAB* 600 MG PO SCH ×5 (00:11→21:00)
[2019-08-29] MEDS: Docusate CAP* 100 MG PO SCH ×4 (00:11→23:34)
[2019-08-29 00:43] LABS: ABS Basophils 0.1 10^3/ul (0-0.2); ABS Monocytes 0.9 10^3/ul (0-0.8); ABS Neutrophils 18.8 10^3/ul (1.5-7.7); Hematocrit 25 % (35-47); Hemoglobin 8.6 g/dL (12.0-16.0); Lymphocyte % 4.6 %; Mean Corpuscular HGB Conc 34 g/dL (31-36); Mean Corpuscular Hemoglobin 29 pg (27-31); Mean Corpuscular Volume 84 fL (80-97); Mean Platelet Volume 8.4 fL (7.4-10.4); Platelet Count 166 10^3/uL (150-450); Red Blood Count 2.98 10^6 /uL (3.70-4.87); Red Cell Distribution Width 14 % (10-15); White Blood Count 20.7 10^3/uL (3.5-10.8)
[2019-08-29] MEDS: Sertraline* 50 MG TAB PO SCH ×2 (00:55→20:16)
[2019-08-29] MEDS ORDERED: Ketorolac INJ* 30 MG/ML 1 ML VIAL IV PUSH ONE (02:00)
[2019-08-29 08:09] LABS: ABS Lymphocytes 1.4 10^3/ul (1.0-4.8); ABS Monocytes 1.2 10^3/ul (0-0.8); ABS Neutrophils 13.2 10^3/ul (1.5-7.7); Eosinophil % 0.2 %; Hematocrit 20 % (35-47); Hemoglobin 6.7 g/dL (12.0-16.0); Lymphocyte % 8.6 %; Mean Corpuscular HGB Conc 34 g/dL (31-36); Mean Corpuscular Hemoglobin 29 pg (27-31); Mean Corpuscular Volume 84 fL (80-97); Mean Platelet Volume 7.8 fL (7.4-10.4); Platelet Count 156 10^3/uL (150-450); Red Blood Count 2.35 10^6 /uL (3.70-4.87); Red Cell Distribution Width 14 % (10-15); White Blood Count 15.8 10^3/uL (3.5-10.8)
[2019-08-29] MEDS: Ferrous Gluconate TAB* 324 MG TAB PO SCH ×2 (09:11→20:15)
--- NOTE | 2019-08-29 11:17 | PN ---
Progress Note - Progress Note Date of Service: 08/29/19 Note: Pt with Hgb less than 7 following hemorrhage. She has not yet been able to get out of bed, has SCDs on and Boyd catheter in place. Bleeding minimal. Fundus firm at 1 cm below umbilicus. Vital signs stable. Recommend transfusion of 2 units PRBCs. Discussed risks and benefits extensively with pt and . They are in agreement. Will recheck CBC 4 hours after second unit complete.
[2019-08-29] MEDS ORDERED: Lidocaine 1% MPF ** 5 ML VIAL ONE (13:48)
[2019-08-30] LABS: ABS Eosinophils 0.1 10^3/ul (0-0.6); ABS Neutrophils 12.1 10^3/ul (1.5-7.7); Eosinophil % 0.7 %; Hematocrit 24 % (35-47); Hemoglobin 8.2 g/dL (12.0-16.0); Lymphocyte % 12.9 %; Mean Corpuscular HGB Conc 35 g/dL (31-36); Mean Corpuscular Hemoglobin 29 pg (27-31); Mean Corpuscular Volume 85 fL (80-97); Mean Platelet Volume 7.5 fL (7.4-10.4); Platelet Count 170 10^3/uL (150-450); Red Blood Count 2.78 10^6 /uL (3.70-4.87); Red Cell Distribution Width 14 % (10-15); White Blood Count 15.1 10^3/uL (3.5-10.8)
[2019-08-30] MEDS: Ibuprofen TAB* 600 MG PO SCH ×2 (05:39→09:36)
[2019-08-30 08:06] VITALS: BP 131/78
[2019-08-30] MEDS: Docusate CAP* 100 MG PO SCH (09:37)
[2019-08-30] MEDS: Ferrous Gluconate TAB* 324 MG TAB PO SCH (09:37)
== END 2019-08-30 16:51 | disposition home or self-care (01) | DRG 560 ==
LOC: MCHOBOUT 18:13 → MCHOB 19:21
PROVIDERS: ADMIT Advanced Practice Midwife; ATTEND Advanced Practice Midwife
PROC: 10E0XZZ Delivery of Products of Conception, External Approach (ICD-10-PCS; principal; 2019-08-28)
PROC: 3E0P7VZ Introduction of Hormone into Female Reproductive, Via Natural or Artificial Opening (ICD-10-PCS; 2019-08-28)
PROC: 3E033VJ Introduction of Other Hormone into Peripheral Vein, Percutaneous Approach (ICD-10-PCS; 2019-08-28)
PROC: 0W8NXZZ Division of Female Perineum, External Approach (ICD-10-PCS; 2019-08-28)
PROC: 30233N1 Transfusion of Nonautologous Red Blood Cells into Peripheral Vein, Percutaneous Approach (ICD-10-PCS; 2019-08-28)
DX: O13.4 Gestational [pregnancy-induced] hypertension without significant proteinuria, complicating childbirth (principal); D62 Acute posthemorrhagic anemia; Z37.0 Single live birth; O63.1 Prolonged second stage (of labor); O69.81X0 Labor and delivery complicated by cord around neck, without compression, not applicable or unspecified; O72.1 Other immediate postpartum hemorrhage; O90.81 Anemia of the puerperium; O48.0 Post-term pregnancy; O99.344 Other mental disorders complicating childbirth; F41.8 Other specified anxiety disorders; Z3A.40 40 weeks gestation of pregnancy; O77.0 Labor and delivery complicated by meconium in amniotic fluid
CPT/HCPCS: 36415; 80053; 80307; 82043; 82570; 84550; 85025; 85027; 86850; 86900; 86901; 86922; A9270-GY; G0480; J0690; J1885; J2405; P9040; S0191